=== PATIENT | female | born 1990 | race Caucasian/White ===

== ENCOUNTER 2017-07-19 05:45 | Inpatient (IN) | payer OTHER ==
[~2017-07-19] VITALS: Ht 160 cm; Wt 61.6 kg
[2017-07-19] VITALS (8 sets, daily range): BP systolic 99–125; BP diastolic 55–75; PULSE 63–81; RESP 16–20; Ht 160 cm; Wt 61.6 kg
[2017-07-19] MEDS: LACTATED RINGER'S 1,000 ML IV SCH ×2 (06:19→07:45)
[2017-07-19] MEDS ORDERED: PRENAT PO (06:20)
[2017-07-19] MEDS ORDERED: MISOPROSTOL 200 MCG TAB PR PRN ×2 (06:30→17:00)
[2017-07-19] MEDS ORDERED: CARBOPROST 250 MCG INJ IM PRN ×2 (06:30→17:00)
[2017-07-19] MEDS ORDERED: IBUPROFEN 600 MG TAB PO PRN (06:30)
[2017-07-19] MEDS ORDERED: BUTORPHANOL 2 MG INJ IV PRN (06:30)
[2017-07-19] MEDS ORDERED: METHYLERGONOVINE 0.2 MG INJ IM PRN ×2 (06:30→17:00)
[2017-07-19] MEDS ORDERED: OXYTOCIN 30 UNITS/LR 500 ML IV SCH ×3 (06:30→11:30)
[2017-07-19] MEDS ORDERED: OXYTOCIN 30 UNITS/LR 500 ML IV PRN ×2 (06:30→17:00)
[2017-07-19] MEDS ORDERED: LACTATED RINGER'S 1,000 ML IV PRN (06:30)
[2017-07-19] MEDS ORDERED: LIDOCAINE 1% (MPF) 30 ML INJ INJ PRN (06:30)
[2017-07-19 06:37] LABS: BASOPHIL # 0.1 10^3/ul (0.0-0.1); BASOPHILS % 0.9 % (0.0-2.0); EOSINOPHILS # 0.1 10^3/ul (0.0-0.5); HEMATOCRIT 41.1 % (37.0-47.0); LYMPHOCYTES # 2.2 10^3/ul (0.8-2.9); LYMPHOCYTES % 24.7 % (15.0-51.0); MEAN CORPUSCULAR HEMOGLOBIN 30.4 pg (29.0-33.0); MEAN CORPUSCULAR HGB CONC 34.1 g/dl (32.0-37.0); MEAN CORPUSCULAR VOLUME 89.3 fl (82.0-101.0); MEAN PLATELET VOLUME 11.4 fl (7.4-10.4); MONOCYTE # 0.9 10^3/ul (0.3-0.9); MONOCYTES % 10.2 % (0.0-11.0); NEUTROPHILS % 59.7 % (39.0-77.0); PLATELET COUNT 176 10^3/UL (140-415); RED CELL DISTRIBUTION WIDTH 14.1 % (11.5-14.5)
[2017-07-19 07:08] LABS: INR 0.95; PROTIME 12.7 Sec (12.2-14.2)
[2017-07-19 07:09] LABS: PARTIAL THROMBOPLASTIN TIME 30.5 Sec (25.0-35.0)
[2017-07-19] MEDS ORDERED: MINERAL OIL LIGHT 10 ML VIAL ONE (10:48)
[2017-07-19] MEDS ORDERED: MINERAL OIL LIGHT 10 ML VIAL TOP ONE (11:00)
--- NOTE | 2017-07-19 14:23 | HP ---
Date/Time of Note Date/Time of Note DATE: 07/19/17 TIME: 14:16 OB - History Hx of Present Free Text/Dictation 27 y.o at 40weeks came in labor with rupture of membrane which happened at 0618 today initaial VE 3-4cm 60% -3 with uterine contractions 2-4min apart course was unevenful' admitted for expectant management. Chief Complaint: U>c and srom Estimated Due Date: Jul 19, 2017 : 4 Para: 2 Spontaneous : 1 Therapeutic : 0 Care: Good Care Ultrasounds: Normal mid trimester US Obstetrical Complications: None Medical Complications: None Past Family/Social History * Past Medical, Surgical, Family and Obstetric Histories reviewed from chart. Blood Type: A+ Rubella: immune RPR/VDRL: Negative GBS Status: Negative HBsAG: Negative OB Admission Exam Vital Signs Vital Signs Vital Signs Date Time Temp Pulse Resp B/P Pulse Ox O2 Delivery O2 Flow Rate FiO2 07/19/17 06:09 97.5 73 18 117/75 Room Air Physical Exam HEENT: WNL Heart: Rhythm Normal Lungs: Clear, Equal Abdomen: WNL Extremities: Normal Reflexes: Normal Cervical Dilatation: 3cm Effacement: 50% Station: -3 Membranes: Ruptured Amniotic Fluid: Clear Heart Rate: 140's Accelerations: Accelerations Present Decelerations: No Decelerations Varibility: Moderate Contractions on Admission: < 5 Minutes Apart Intensity: Mild Last 72 hours Lab Results CBC & BMP 07/19/17 06:00 OB Assessment/Plan Other Assessment: IUP 40w with SROM in active labor Plan: Expectant Management SAAD CRAIG MD Jul 19, 2017 14:23
--- NOTE | 2017-07-19 14:25 | LDN ---
Date/Time of Note Date/Time of Note DATE: 07/19/17 TIME: 14:23 Delivery Summary normal vaginal delivery Weeks of Gestation 40weeks Placenta Delivered: Spontaneously Meconium: none Episiotomy: No Perineal laceration: 0 Anesthesia type: None Estimated blood loss: 100 Sponge & Needle done & correct: Yes All needle counts correct: Yes Any foreign bodies felt in the: No Problems: Infant Delivery Information Sex Sex: male Apgars 1 Minute: 9 5 Minute: 9 Suctioning Nose & mouth suctioned at [place]: Yes Delee suction performed: No Umbilical Cord Umbilical cord with: 3 Vessels Cord presentations: nuchal cord Nuchal cord present X: 1 Cord Blood was obtained: Yes Mother & Baby Disposition Disposition Mom & Baby to Maternity; Good: Yes Mom transferred to: Other () Baby to NICU: No () SAAD CRAIG MD Jul 19, 2017 14:25
[2017-07-19] MEDS ORDERED: LANOLIN 7 GM TUBE TOP PRN (17:00)
[2017-07-19] MEDS ORDERED: BENZOCAINE 20% 56 ML SPRAY TOP PRN (17:00)
[2017-07-19] MEDS ORDERED: OXYCODONE/ASPIRIN (4.88/325) TAB PO PRN ×2 (17:00)
[2017-07-19] MEDS ORDERED: WITCH HAZEL/GLYCERIN PAD PR PRN (17:00)
[2017-07-19] MEDS ORDERED: ZOLPIDEM 5 MG TAB PO PRN (17:00)
[2017-07-19] MEDS: IBUPROFEN 600 MG TAB PO SCH ×2 (17:35→23:32)
[2017-07-19] MEDS: SENNA/DOCUSATE NA (8.6MG/50MG) TAB PO SCH (21:08)
[2017-07-20 04:15] VITALS: BP 115/64; PULSE 70; RESP 70
[2017-07-20] MEDS: IBUPROFEN 600 MG TAB PO SCH ×3 (05:39→17:50)
[2017-07-20 08:00] VITALS: BP 103/57; PULSE 68; RESP 19
[2017-07-20] MEDS: SENNA/DOCUSATE NA (8.6MG/50MG) TAB PO SCH ×2 (09:35→21:15)
[2017-07-20 10:13] LABS: BASOPHIL # 0.1 10^3/ul (0.0-0.1); BASOPHILS % 0.6 % (0.0-2.0); EOSINOPHILS # 0.1 10^3/ul (0.0-0.5); EOSINOPHILS % 0.6 % (0.0-7.0); HEMATOCRIT 37.6 % (37.0-47.0); HEMOGLOBIN 12.8 g/dl (12.0-16.0); LYMPHOCYTES # 1.4 10^3/ul (0.8-2.9); LYMPHOCYTES % 13.3 % (15.0-51.0); MEAN CORPUSCULAR HEMOGLOBIN 30.5 pg (29.0-33.0); MEAN CORPUSCULAR VOLUME 89.7 fl (82.0-101.0); MEAN PLATELET VOLUME 11.8 fl (7.4-10.4); MONOCYTE # 1.1 10^3/ul (0.3-0.9); MONOCYTES % 9.9 % (0.0-11.0); NEUTROPHILS % 73.3 % (39.0-77.0); PLATELET COUNT 173 10^3/UL (140-415); RED BLOOD COUNT 4.19 10^6/ul (4.20-5.40); RED CELL DISTRIBUTION WIDTH 14.2 % (11.5-14.5); WHITE BLOOD COUNT 10.8 10^3/ul (4.8-10.8)
[2017-07-20 16:18] VITALS: BP 108/64; PULSE 63; RESP 19
--- NOTE | 2017-07-20 17:06 | PN ---
Date/Time of Note Date/Time of Note DATE: 07/20/17 TIME: 17:04 OB Subjective Subjective Subjective no c/o OB Objective Objective Objective vss afebrile lochia min calf neg or tenderness OB Assessment/Plan Other Assessment: post vaginal delivery #1 stable Other plan: discharge home in am SAAD CRAIG MD Jul 20, 2017 17:06
[2017-07-20 19:40] VITALS: BP 108/73; PULSE 63; RESP 18
[2017-07-21] MEDS: IBUPROFEN 600 MG TAB PO SCH ×2 (00:21→05:36)
[2017-07-21 03:55] VITALS: BP 100/65; PULSE 52; RESP 18
[2017-07-21 08:00] VITALS: BP 100/61; PULSE 69; RESP 18
[2017-07-21] MEDS ORDERED: DIPHTH/TET/ACEL PERTUSS (ADULT) 0.5 ML VIAL IM* ONE (09:00)
[2017-07-21] MEDS: SENNA/DOCUSATE NA (8.6MG/50MG) TAB PO SCH (09:00)
--- NOTE | 2017-07-21 09:04 | DS ---
Date/Time of Note Date/Time of Note DATE: 07/21/17 TIME: 09:02 Obstetrical Discharge Record Final Diagnosis Final Diagnosis: Term delivered Other Final Diagnosis Term .Normal vaginal delivery. Vaginal Delivery Obstetrical Delivery: Spontaneous Condition on Discharge Physical Assessment Last Vitals: Stable.Afebrile Voiding: Yes Bowel Movement: Yes Breast: Soft, non-tender Fundus: Firm Calf Tenderness: No Patient Condition: Good SELINA MONTES DE OCA MD Jul 21, 2017 09:04
--- NOTE | 2017-07-21 09:05 | PD.PPDC ---
RESTAURANT DELIVERY DRIVER Discharge Instruction Diagnosis Final Diagnosis: Term .NVD. Condition Patient Condition: Good Diet Diet: Resume Regular Diet Activity/Restrictions Activity: Normal Activity May Shower Restrictions: No Sexual Activity Nothing in the Vagina No [place] Follow-up Follow-up with Physician: 2, Week/Weeks Return to clinic for SEARCH PLANNER Instructions: Fever greater than 101 Worsening abdominal pain Excessive Vaginal Bleeding Unable to tolerate diet OB Instructions: Breast Tenderness Depression SELINA MONTES DE OCA MD Jul 21, 2017 09:05
== END 2017-07-21 13:15 | disposition home or self-care (01) | DRG 775 ==
LOC: OBT 05:45 → L-D 05:45 → OBT 06:00 → L-D 08:52 → PP1 16:16
PROVIDERS: ADMIT Specialist; ATTEND Specialist
PROC: 10E0XZZ Delivery of Products of Conception, External Approach (ICD-10-PCS; principal; 2017-07-19)
DX: O80 Encounter for full-term uncomplicated delivery (principal); Z37.0 Single live birth; Z3A.40 40 weeks gestation of pregnancy
CPT/HCPCS: 85025; 85610; 85730; 86592; 86900; 86901; 87340; 90715; J2590; J7120